=== PATIENT | female | born 1990 | race American Indian/Alaskan Native ===

== ENCOUNTER 2017-12-22 11:19 | Emergency (ER) | payer OTHER ==
[2017-12-22 11:34] VITALS: BP 125/74
[2017-12-22] MEDS ORDERED: NORCO 5/325 PO ONE (12:19)
[2017-12-22] MEDS ORDERED: DELTASONE PO ONE (12:19)
[2017-12-22] MEDS ORDERED: TORADOL IM ONE (12:19)
--- NOTE | 2017-12-22 12:19 | Emergency Department Report ---
ED Back Pain/Injury HPI - General Chief Complaint: Back Pain/Injury Stated Complaint: LOWER BACK PAIN AND SWOLLEN LEFT FOOT Time Seen by Provider: 12/22/17 12:00 Source: patient, family Limitations: No Limitations - History of Present Illness Initial Comments: This 27-year-old female here for left lower back pain this radiating down to her left side anterior legs. She denies any recent injury but reports that she has had similar incident in the past and went to [facility] where digit x-ray and told her that she has some problem with her disc in her lower back. Pain is not at a 10 she reports that it is achy and pain to her lower leg is tingling. She denies any medical problem except that she has scoliosis and high cholesterol. Patient is morbidly obese. No medication taken for pain per patient. Pain is worse with walk-in and better with rest. Denies any urinary burning, frequency or urgency. Denies any abdominal pain. MD Complaint: back pain Onset/Timin -: days(s) Similar Symptoms Previously: Yes Place: home Radiation: left leg Severity: severe (plan/10 and achy) Severity scale (0 -10): 9 Quality: aching Consistency: constant Improves With: immobilization Worsens With: walking Context: unknown (she says she was diagnosed last year with some clotted degeneration in her back and she has scoliosis.) Associated Symptoms: difficulty walking. denies: confusion, weakness, chest pain, numbness, cough, diaphoresis, incontinence, fever/chills, constipation, headaches, abdominal pain, loss of appetite, nausea/vomiting, rash, seizure, shortness of breath, syncope Treatments Prior to Arrival: other (none) - Related Data Previous Rx's Medication Instructions Recorded Last Taken Type Docusate Sodium [Colace] 100 mg PO QDAY #30 capsule 07/01/13 Unknown Rx Ondansetron [Zofran] 4 mg PO Q6HR PRN #14 tablet 07/01/13 Unknown Rx HYDROcodone/APAP 10-325 [Widener 1 each PO Q8HR PRN #20 tablet 09/17/14 Unknown Rx 10-325 mg TAB] Ibuprofen [Motrin] 600 mg PO Q8H PRN #15 tablet 12/22/17 Unknown Rx traMADol [Ultram] 50 mg PO Q6HR PRN #16 tablet 12/22/17 Unknown Rx Allergies Allergy/AdvReac Type Severity Reaction Status Date / Time No Known Allergies Allergy Verified 07/01/13 01:15 ED Review of Systems ROS: Stated complaint: LOWER BACK PAIN AND SWOLLEN LEFT FOOT Other details as noted in HPI Constitutional: denies: chills, fever Eyes: denies: eye discharge ENT: denies: ear pain, throat pain, congestion Respiratory: denies: cough, orthopnea, shortness of breath, SOB with exertion, SOB at rest, stridor, wheezing Cardiovascular: denies: chest pain, palpitations, dyspnea on exertion, edema, syncope, paroxysmal nocturnal dyspnea Gastrointestinal: denies: abdominal pain, nausea, vomiting, diarrhea, constipation, hematemesis, melena, hematochezia Genitourinary: denies: urgency, dysuria, frequency, hematuria, discharge Musculoskeletal: back pain, arthralgia. denies: joint swelling, myalgia Skin: denies: rash, lesions Neurological: paresthesias (left lower extremity), abnormal gait. 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 No distress. Alert and acting appropriately. This is a 27-year-old female here for lower back pain. She is in no acute distress and she is nontoxic in appearance. Patient is morbidly obese Lungs: Auscultated bilaterally, no rhonchi without rales CV: S1, S2, regular rate and rhythm Skin: Clean ,Dry, intact, no rashes or lesions Cavity: No clubbing, cyanosis or edema. +2 pulses to all extremities and no neurovascular compromise Back/Abdomen: No Abdominal Tenderness, No Perithoracic Tenderness, No Perilumbar Tenderness, No Sacroiliac Tenderness, No Flank Tenderness, No Straight Leg Raise Pain Neuro: Yes Normal Sensation (no focal deficits), Yes Normal DTR's, Yes Normal Gait, No Motor Weakness ED Course Vital Signs 12/22/17 11:28 Temperature 98.5 F Pulse Rate 92 H Respiratory 18 Rate Blood Pressure 125/74 O2 Sat by Pulse 99 Oximetry - Reevaluation(s) Reevaluation #1: 12/22/17 12:44 Patient received Deltasone 60 MG BY MOUTH, TORADOL 60 MG IM AND HYDROCODONE 5/ 50 TABLETS. EMERGENCY ROOM FOR RELIEF OF PAIN. ED Medical Decision Making - Medical Decision Making ED course: Patient here complaining of lower back pain that radiated to her left leg and she's had similar episode in the past foot x-ray in the past associated with lumbar abnormality with scoliosis. She states that pain started 2 days ago and she isn't having any urinary or abdominal symptoms. She is here to be checked Patient was seen by myself and evaluated and she has left lumbar radiculopathy which is chronic. She was given pain medication which relieved her pain and I explained to her she'll need to follow up with orthopedic doctor for chronic lower back pain and radiculopathic. She voiced understanding and patient discharged home with prescription for Ultram and Motrin A/P 1: Acute exacerbation of chronic back pain-patient given the physical system of gram by mouth, Toradol 60 mg IM and Widener 5/325 2 tablets by mouth in emergency room patient with her pain. Referred orthopedic 2: Lumbar radiculopathy, left-this is chronic and better after pain medication Prescription given for Ultram and Motrin up and discharged. Educated on diet, obesity, medication, back exercises to strengthen back and diagnosis. She voiced understanding. Condition discharged home in stable condition, she feels better vital signs are stable she's afebrile. Discharged to follow up with orthopedic in a primary care physician in 3 days. I discussed elevated if she does not have a primary care physician she is to follow-up with some outside [facility] and she voiced understanding. She was also instructed to return to the emergency room if her symptoms worsen to include loss of bowel or bladder function. Critical care attestation.: If time is entered above; I have spent that time in minutes in the direct care of this critically ill patient, excluding procedure time. ED Disposition Clinical Impression: Acute exacerbation of chronic low back pain, Left lumbar radiculopathy, Morbid obesity with BMI of 40.0-44.9, adult Disposition: - TO HOME OR SELFCARE Is pt being admited?: No Does the pt Need Aspirin: No Condition: Stable Instructions: Obesity (ED), Weight Management (ED), Back Pain (ED), Core Strengthening Exercises (GEN), Lumbar Radiculopathy (ED) Additional Instructions: Please follow up with orthopedic doctor as instructed. Discharge instructions and core exercises and weight management Patient medication as prescribed please in a jar for a period machinery while taking Ultram as medication causes drowsiness Return to the emergency room if he experiences, loss of bowel or bladder function and worsening symptoms. Prescriptions: Ibuprofen [Motrin] 600 mg PO Q8H PRN #15 tablet PRN Reason: Pain traMADol [Ultram] 50 mg PO Q6HR PRN #16 tablet PRN Reason: moderate to severe pain Referrals: PRIMARY CARE, [Primary Care Provider] - 2-3 Days NOLAN DE LEON MD [Staff Physician] - 2-3 Days
== END 2017-12-22 13:18 | disposition home or self-care (01) ==
LOC: ED 11:19
DX: M54.16 Radiculopathy, lumbar region (principal); G89.29 Other chronic pain; E78.00 Pure hypercholesterolemia, unspecified; E66.01 Morbid (severe) obesity due to excess calories; Z68.41 Body mass index [BMI] 40.0-44.9, adult
CPT/HCPCS: 96372; 99282; J1885; J7512

== ENCOUNTER 2020-10-05 13:55 | Emergency (ER) | payer SELFPAY ==
[2020-10-05 14:30] VITALS: BP 144/75
--- NOTE | 2020-10-05 16:55 | Emergency Department Report ---
ED General Adult HPI - General Chief complaint: Extremity Injury, Lower Stated complaint: LT LEG NUMB/SWOLLEN Source: patient Mode of arrival: Ambulatory Limitations: No Limitations - History of Present Illness Initial comments: Patient is a 29-year-old -[place] female with no past medical history presents to the ED with acute onset persistent nontraumatic low back pain that radiates to the left hip and left lower leg for the last 2 days, worse in the last 24 hours. Patient states that the pain is worse with any ambulation or any active range of motion especially the left hip. Patient denies fall, traumatic injury, heavy lifting, nausea, vomiting, dysuria, urinary frequency and urgency, chest pain, shortness of breath, neck pain, numbness and tingling or weakness of lower extremities bilaterally, urinary retention, hematuria, dysuria, fever and chills or abdominal pain. MD Complaint: Low back pain radiating to left hip and left leg -: Sudden, days(s) (2) Location: back, lower extremity (left lower leg and hip) Radiation: back (LOWER), distal (LEFT HIP AND LEFT LOWER LEG) Severity scale (0 -10): 7 Quality: aching, sharp Consistency: constant Improves with: none Worsens with: movement Associated Symptoms: denies other symptoms. denies: confusion, chest pain, cough, diaphoresis, fever/chills, headaches, malaise, rash, seizure, shortness of breath, syncope Treatments Prior to Arrival: none - Related Data Previous Rx's Medication Instructions Recorded Last Taken Type Docusate Sodium [Colace] 100 mg PO QDAY #30 capsule 07/01/13 Unknown Rx Ondansetron [Zofran] 4 mg PO Q6HR PRN #14 tablet 07/01/13 Unknown Rx HYDROcodone/APAP 10-325 [Cathay 1 each PO Q8HR PRN #20 tablet 09/17/14 Unknown Rx 10-325 mg TAB] traMADoL [Ultram] 50 mg PO Q6HR PRN #16 tablet 12/22/17 Unknown Rx Baclofen 20 mg PO Q8H PRN #24 tablet 10/05/20 Unknown Rx Ibuprofen [Motrin 600 MG tab] 600 mg PO Q8H PRN #30 tablet 10/05/20 Unknown Rx predniSONE [Deltasone] 40 mg PO QDAY #10 tab 10/05/20 Unknown Rx Allergies Allergy/AdvReac Type Severity Reaction Status Date / Time No Known Allergies Allergy Verified 10/05/20 14:26 ED Review of Systems ROS: Stated complaint: LT LEG NUMB/SWOLLEN Other details as noted in HPI Constitutional: denies: chills, fever Eyes: denies: eye pain, eye discharge, vision change ENT: denies: ear pain, throat pain Respiratory: denies: cough, shortness of breath, wheezing Cardiovascular: denies: chest pain, palpitations Endocrine: no symptoms reported Gastrointestinal: denies: abdominal pain, nausea, diarrhea Genitourinary: denies: urgency, dysuria, discharge Musculoskeletal: back pain (Low back pain), arthralgia (Left hip and left lower leg pain), myalgia. denies: joint swelling Skin: denies: rash, lesions Neurological: denies: headache, weakness, paresthesias Psychiatric: denies: anxiety, depression Hematological/Lymphatic: denies: easy bleeding, easy bruising ED Past Medical Hx - Past Medical History Additional medical history: l - Social History Smoking Status: Never Smoker - Medications Home Medications: Home Medications Medication Instructions Recorded Confirmed Last Taken Type Docusate Sodium [Colace] 100 mg PO QDAY #30 capsule 07/01/13 Unknown Rx Ondansetron [Zofran] 4 mg PO Q6HR PRN #14 tablet 07/01/13 Unknown Rx HYDROcodone/APAP 10-325 [Cathay 1 each PO Q8HR PRN #20 tablet 09/17/14 Unknown Rx 10-325 mg TAB] traMADoL [Ultram] 50 mg PO Q6HR PRN #16 tablet 12/22/17 Unknown Rx Baclofen 20 mg PO Q8H PRN #24 tablet 10/05/20 Unknown Rx Ibuprofen [Motrin 600 MG tab] 600 mg PO Q8H PRN #30 tablet 10/05/20 Unknown Rx predniSONE [Deltasone] 40 mg PO QDAY #10 tab 10/05/20 Unknown Rx ED Physical Exam - General Limitations: No Limitations General appearance: alert, in no apparent distress - Head Head exam: Present: atraumatic, normocephalic, normal inspection - Eye Eye exam: Present: normal appearance, PERRL, EOMI Pupils: Present: normal accommodation - ENT ENT exam: Present: normal exam, normal orophraynx, mucous membranes moist, TM's normal bilaterally, normal external ear exam - Neck Neck exam: Present: normal inspection, full ROM - Respiratory Respiratory exam: Present: normal lung sounds bilaterally. Absent: respiratory distress, wheezes, rales, rhonchi, chest wall tenderness, accessory muscle use, decreased breath sounds, prolonged expiratory - Cardiovascular Cardiovascular Exam: Present: normal rhythm, tachycardia, normal heart sounds. Absent: systolic murmur, diastolic murmur, rubs, gallop - GI/Abdominal GI/Abdominal exam: Present: soft, normal bowel sounds. Absent: tenderness, guarding, hyperactive bowel sounds, hypoactive bowel sounds - Extremities Exam Extremities exam: Present: normal inspection, full ROM, tenderness (Palpable left hip tenderness), normal capillary refill - Back Exam Back exam: Present: normal inspection, full ROM, tenderness (Palpable lumbosacral paraspinal musculoskeletal tenderness), muscle spasm, paraspinal tenderness. Absent: CVA tenderness (L) - Neurological Exam Neurological exam: Present: alert, oriented X3, CN II-XII intact, normal gait, reflexes normal - Psychiatric Psychiatric exam: Present: normal affect, normal mood, anxious - Skin Skin exam: Present: warm, dry, intact, normal color. Absent: rash ED Course Vital Signs 10/05/20 14:28 Temperature 97.5 F L Pulse Rate 114 H Respiratory 18 Rate Blood Pressure 144/75 O2 Sat by Pulse 98 Oximetry ED Medical Decision Making - Medical Decision Making This is a 29-year-old -[place] female with no past medical history presents to the ED with acute onset persistent nontraumatic low back pain that radiates to the left hip and left lower leg for the last 2 days, worse in the last 24 hours. Patient states that the pain is worse with any ambulation or any active range of motion especially the left hip. In the ED, patient is alert and oriented x3 and is not in distress but anxious and tachycardic in triage. Patient physical exam findings and the patient's history, patient's symptoms are likely musculoskeletal versus sciatica. Patient's vital signs were rechecked and the tachycardia also resolved. Patient was discharged home on medications for pain and muscle relaxants and advised to follow-up with her primary care physician in 5 to 7 days for reevaluation or return to the ED immediately if symptoms get worse. - Differential Diagnosis Sciatica; muscle spasm; muscle strain of left hip Critical care attestation.: If time is entered above; I have spent that time in minutes in the direct care of this critically ill patient, excluding procedure time. ED Disposition Clinical Impression: Spasm of muscle of lower back, Strain of muscle, fascia and tendon of left hip, initial encounter Acute low back pain with left-sided sciatica Qualifiers: Back pain laterality: left Qualified Code(s): M54.42 - Lumbago with sciatica, left side Disposition: TO HOME OR SELFCARE Is pt being admited?: No Does the pt Need Aspirin: No Condition: Stable Instructions: Muscle Cramps and Spasms, [id number], Sciatica, [id number], Muscle Strain, [id number] Additional Instructions: Take medication with food, drink plenty of fluids and follow-up with your primary care physician in 5 to 7 days for reevaluation. Return to the ED immediately if symptoms get worse. Prescriptions: Baclofen 20 mg PO Q8H PRN #24 tablet PRN Reason: Muscle Spasm predniSONE [Deltasone] 40 mg PO QDAY #10 tab Ibuprofen [Motrin 600 MG tab] 600 mg PO Q8H PRN #30 tablet PRN Reason: Pain Referrals: [facility] [Provider Group] - 3-5 Days Time of Disposition: 16:56 Print Language: CYPRIOT
== END 2020-10-05 17:39 | disposition home or self-care (01) ==
LOC: ED 13:55
DX: S76.012A Strain of muscle, fascia and tendon of left hip, initial encounter (principal); M62.830 Muscle spasm of back; M54.42 Lumbago with sciatica, left side; Z79.899 Other long term (current) drug therapy; X58.XXXA Exposure to other specified factors, initial encounter; Y93.89 Activity, other specified; Y92.89 Other specified places as the place of occurrence of the external cause; Y99.8 Other external cause status
CPT/HCPCS: 99281

== ENCOUNTER 2021-04-26 07:27 | Emergency (ER) | payer SELFPAY ==
[2021-04-26 07:43] VITALS: BP 143/95
--- NOTE | 2021-04-26 08:49 | Emergency Department Report ---
ED General Adult HPI - General Chief complaint: Pain General Stated complaint: SWOLLEN LT FOOT Time Seen by Provider: 04/26/21 08:39 Source: patient Mode of arrival: Ambulatory Limitations: No Limitations - History of Present Illness Initial comments: The patient was evaluated in the emergency department for symptoms described in the history of present illness. He/she was evaluated in the context of the global COVID-19 pandemic, which necessitated consideration that the patient might be at risk for infection with the virus that causes COVID-19. In stitutional protocols and algorithms that pertain to the evaluation of patients at risk for COVID-19 are in a state of rapid change based on information released by regulatory bodies including the CDC and federal and state organizations. These policies and algorithms were followed during the patient's care in the emergency department. Please note that these policies, procedures and recommendations changed on a rapid basis. 30-year-old morbid obese -[place] presents to the emergency room complaining of left lower extremity leg tingling and numbness. Patient states she has had this before and she has had a steroid injection Toradol injection without much relief. Patient denies any new injury. Denies any chest pain or shortness of breathing no recent falls or travels. She states she is not on control. She states she was diagnosed with sciatica in the past. She has not followed up with a primary care provider recently. Onset/Timin -: year(s) Location: left, lower extremity Radiation: non-radiation, distal Severity scale (0 -10): 4 Quality: other (Tingling and numbness) Consistency: intermittent Improves with: none Worsens with: none Associated Symptoms: denies other symptoms Treatments Prior to Arrival: none - Related Data Previous Rx's Medication Instructions Recorded Last Taken Type Docusate Sodium [Colace] 100 mg PO QDAY #30 capsule 07/01/13 Unknown Rx Ondansetron [Zofran] 4 mg PO Q6HR PRN #14 tablet 07/01/13 Unknown Rx HYDROcodone/APAP 10-325 [[place] 1 each PO Q8HR PRN #20 tablet 09/17/14 Unknown Rx 10-325 mg TAB] traMADoL [Ultram] 50 mg PO Q6HR PRN #16 tablet 12/22/17 Unknown Rx Baclofen 20 mg PO Q8H PRN #24 tablet 10/05/20 Unknown Rx Ibuprofen [Motrin 600 MG tab] 600 mg PO Q8H PRN #30 tablet 10/05/20 Unknown Rx predniSONE [Deltasone] 40 mg PO QDAY #10 tab 10/05/20 Unknown Rx Apixaban [Eliquis] 5 mg PO DAILY 30 Days #70 tablet 04/26/21 Unknown Rx Allergies Allergy/AdvReac Type Severity Reaction Status Date / Time No Known Allergies Allergy Verified 10/05/20 14:26 ED Review of Systems ROS: Stated complaint: SWOLLEN LT FOOT Other details as noted in HPI Comment: All other systems reviewed and negative ED Past Medical Hx - Past Medical History Previous Medical History?: No Additional medical history: sciatica - Surgical History Past Surgical History?: No - Social History Smoking Status: Never Smoker Substance Use Type: Marijuana - Medications Home Medications: Home Medications Medication Instructions Recorded Confirmed Last Taken Type Docusate Sodium [Colace] 100 mg PO QDAY #30 capsule 07/01/13 Unknown Rx Ondansetron [Zofran] 4 mg PO Q6HR PRN #14 tablet 07/01/13 Unknown Rx HYDROcodone/APAP 10-325 [[place] 1 each PO Q8HR PRN #20 tablet 09/17/14 Unknown Rx 10-325 mg TAB] traMADoL [Ultram] 50 mg PO Q6HR PRN #16 tablet 12/22/17 Unknown Rx Baclofen 20 mg PO Q8H PRN #24 tablet 10/05/20 Unknown Rx Ibuprofen [Motrin 600 MG tab] 600 mg PO Q8H PRN #30 tablet 10/05/20 Unknown Rx predniSONE [Deltasone] 40 mg PO QDAY #10 tab 10/05/20 Unknown Rx Apixaban [Eliquis] 5 mg PO DAILY 30 Days #70 tablet 04/26/21 Unknown Rx ED Physical Exam - General Limitations: No Limitations ED Course Vital Signs 04/26/21 07:37 Temperature 98.6 F Pulse Rate 87 Respiratory 18 Rate Blood Pressure 143/95 O2 Sat by Pulse 99 Oximetry ED Medical Decision Making - Radiology Data Radiology results: report reviewed [facility] [address] [place] [address] Vascular Lab Report Signed Patient: WAQAR JACOBS MR# : [id number] : 1990 Acct:[id number] Age/Sex: 30 / F ADM Date: 04/26/21 Loc: ED Attending Dr: Ordering Physician: DYLON WILKS Date of Service: 04/26/21 Procedure(s): VL venous duplex LE LT Accession Number(s): [id number] cc: DYLON WILKS DUPLEX DOPPLER LOWER EXTREMITY VEINS, LEFT INDICATION / CLINICAL INFORMATION: LLE swelling and numbness. TECHNIQUE: Duplex doppler imaging was performed through the veins of the left lower extremity using venous compression and other maneuvers. COMPARISON: None available. FINDINGS: LEFT COMMON FEMORAL VEIN: Negative. LEFT FEMORAL VEIN: Negative. LEFT POPLITEAL VEIN: Negative. LEFT CALF VEINS: Acute occlusive DVT is noted in the posterior tibial and peron eal veins. ADDITIONAL FINDINGS: None. IMPRESSION: Acute occlusive DVT in the left calf veins without sonographic evidence of DVT proximally. The patient's nurse Marielena was notified of these findings by the [facility], Stephen Adam, at 10:22 EST today. Signer Name: Jon Eller MD Signed: 04/26/2021 10:49 AM Workstation Name: [id number] Transcribed By: MN Dictated By: Jon Eller MD Electronically Authenticated By: Jon Eller MD Signed Date/Time: 04/26/21 1049 - Medical Decision Making 30-year-old morbid obese -[place] presents to the emergency room complaining of left lower extremity leg tingling and numbness. Patient states she has had this before and she has had a steroid injection Toradol injection without much relief. Patient denies any new injury. Denies any chest pain or shortness of breathing no recent falls or travels. She states she is not on control. She states she was diagnosed with sciatica in the past. She has not followed up with a primary care provider recently. Ordered a left lower extremity Doppler remote broadcast technician called to inform nurse Peguero for Acute occlusive DVT in the left calf veins without sonographic evidence of DVT proximally. Patient be placed on Eliquis 10 mg p.o. twice daily for 7 days and 5 mg p.o. twice daily. Patient is referred to outpatient vascular for full anticoagulation work-up and refills on medication. Discussed with patient she cannot have ibuprofen or aspirin Tylenol only. Given patient precautions on being on blood thinners. Patient verbalized understanding. Critical care attestation.: If time is entered above; I have spent that time in minutes in the direct care of this critically ill patient, excluding procedure time. ED Disposition Clinical Impression: DVT (deep venous thrombosis) Disposition: 01 HOME / SELF CARE / HOMELESS Is pt being admited?: No Does the pt Need Aspirin: No Condition: Stable Instructions: Bleeding Precautions When on Anticoagulant Therapy, Adult, Deep Vein Thrombosis Additional Instructions: Use take anticoagulant medication as prescribed. Is important that you read the literature on which he can and cannot take while taking this medication. It is very important you follow-up with a vascular provider in the next 3 to 5 days. You may need to be on this medication for 3 to 6 months sometimes a year. So it is very important that you follow-up. You will need a full vascular work-up that can be done at outpatient vascular provider. Do not take ibuprofen or aspirin while taking this medication until you have spoken to your vascular provider. Tylenol only for pain. You need to return back to the emergency room immediately if you start to have chest pain shortness of breath worst headache of your life uncontrolled bleeding. Prescriptions: Apixaban [Eliquis] 5 mg PO DAILY 30 Days #70 tablet Referrals: [facility] [Provider Group] - 3-5 Days [facility] [Provider Group] - 3-5 Days Forms: Work/School Release Form(ED)
--- NOTE | 2021-04-26 10:53 | Vascular Lab Report ---
DUPLEX DOPPLER LOWER EXTREMITY VEINS, LEFT INDICATION / CLINICAL INFORMATION: LLE swelling and numbness. TECHNIQUE: Duplex doppler imaging was performed through the veins of the left lower extremity using venous compr ession and other maneuvers. COMPARISON: None available. FINDINGS: LEFT COMMON FEMORAL VEIN: Negative. LEFT FEMORAL VEIN: Negative. LEFT POPLITEAL VEIN: Negative. LEFT CALF VEINS: Acute occlusive DVT is noted in the posterior tibial and peroneal veins. ADDITIONAL FINDINGS: None. IMPRESSION: Acute occlusive DVT in the left calf veins without sonographic evidence of DVT proximally. The patient's nurse Marielena was notified of these findings by the [employer] techStephen, at 10:22 EST sara valentine Signer Name: Jon Eller MD Signed: 04/26/2021 10:49 AM Workstation Name: [id number]
== END 2021-04-26 11:27 | disposition home or self-care (01) ==
LOC: ED 07:27
DX: I82.402 Acute embolism and thrombosis of unspecified deep veins of left lower extremity (principal); F12.90 Cannabis use, unspecified, uncomplicated; Z79.899 Other long term (current) drug therapy
CPT/HCPCS: 99283